=== PATIENT | male | born 1980 ===

== ENCOUNTER 2019-04-02 12:37 | Emergency (ER) | payer OTHER ==
[~2019-04-02] VITALS: Ht 152.4 cm; Wt 89.4 kg
[2019-04-02] MEDS ORDERED: MICARDIS HCT 81 EAC1 (13:07)
[2019-04-02] MEDS ORDERED: TOPROL XL25 M1 (13:07)
[2019-04-02] MEDS ORDERED: BUSPIRONE HCL10 MG (13:08)
[2019-04-02] MEDS ORDERED: PROTONIX40 M1 (13:08)
[2019-04-02] MEDS ORDERED: LAMICTAL100 MG (13:09)
[2019-04-02] MEDS ORDERED: ADVAIR HFA 230/12 GM (13:09)
[2019-04-02] MEDS ORDERED: CELEBREX200MG (13:09)
== END 2019-04-02 14:29 | disposition home or self-care (01) ==
LOC: ER 12:37
DX: M25.462 Effusion, left knee (principal)